=== PATIENT | male | born 1975 | race Hispanic/Latino ===

== ENCOUNTER 2018-06-11 13:49 | Observation (INO) | payer OTHER ==
[~2018-06-11] VITALS: Ht 175.3 cm; Wt 111.8 kg
[2018-06-11] MEDS ORDERED: SODIUM CHLORIDE 0.9% 1000ML 1,000 ML IV STA (13:57)
[2018-06-11] MEDS ORDERED: ONDANSETRON HCL INJ 2 MG/ML VIAL IV STA (13:57)
[2018-06-11] MEDS ORDERED: LABETALOL HCL 5 MG/ML 20ML VIAL IV STA (13:57)
[2018-06-11] MEDS ORDERED: ASPIRIN 81 MG CHEW TAB PO ONE ×2 (14:00→16:15)
[2018-06-11 14:19] LABS: BASOPHILS # (AUTO) 0.1 (0.0-0.1); BASOPHILS % 0.9 % (0.0-1.0); EOSINOPHILS # (AUTO) 0.3 (0.0-0.4); EOSINOPHILS % 5.3 % (0.0-6.0); HEMATOCRIT 37.7 % (38.2-49.6); HEMOGLOBIN 13.3 g/dL (14.0-18.0); LYMPHOCYTES # (AUTO) 1.7 (1.0-3.2); LYMPHOCYTES % 31.4 % (18.0-39.1); MEAN CORPUSCULAR HEMOGLOBIN 32.2 pg (28-32); MEAN CORPUSCULAR HGB CONC 35.3 g/dL (31-35); MEAN CORPUSCULAR VOLUME 91.3 fL (81-99); MONOCYTES # (AUTO) 0.5 (0.2-0.8); MONOCYTES % 8.5 % (4.4-11.3); NEUTROPHILS % 53.5 % (38.7-80.0); PLATELET COUNT 275 x10e3/uL (140-360); RED BLOOD COUNT 4.13 x10e6/uL (4.3-5.7); RED CELL DISTRIBUTION WIDTH 12.6 % (11.7-14.4)
[2018-06-11 14:33] LABS: INR 0.81; PARTIAL THROMBOPLASTIN TIME 27.9 seconds (23.8-35.5)
[2018-06-11 14:41] LABS: ALANINE AMINOTRANSFERASE 15 IU/L (0-55); ALBUMIN/GLOBULIN RATIO 1.1 (0.8-2.0); ALKALINE PHOSPHATASE 73 IU/L (40-150); ANION GAP 17.2 mmol/L (8-16); BLOOD UREA NITROGEN 12 mg/dL (7-26); BUN/CREATININE RATIO 10 (6-25); CALCIUM 9.1 mg/dL (8.4-10.2); CARBON DIOXIDE 21 mmol/L (22-29); CHLORIDE 101 mmol/L (98-107); CREATINE KINASE 44 IU/L (30-200); CREATININE, SERUM 1.16 mg/dL (0.72-1.25); EST GLOMERULAR FILTRATION RATE > 60 ML/MIN (60-); GLUCOSE 352 mg/dL (74-118); LIPASE 14 U/L (8-78); POTASSIUM 4.2 mmol/L (3.5-5.1); SODIUM 135 mmol/L (136-145)
[2018-06-11] MEDS ORDERED: ALPRAZOLAM2 MG PO (14:42)
[2018-06-11] MEDS ORDERED: CONZIP300 MG PO (14:42)
[2018-06-11] MEDS ORDERED: HUMALOG100 UNIT/1 SQ (14:42)
[2018-06-11] MEDS ORDERED: MELOXICAM15 MG PO (14:42)
[2018-06-11] MEDS ORDERED: LORAZEPAM1 MG PO (14:42)
[2018-06-11] MEDS ORDERED: TRESIBA SQ (14:42)
[2018-06-11] MEDS ORDERED: ATORVASTATIN CA20 MG PO (14:42)
[2018-06-11] MEDS ORDERED: NORTRIPTYLINE H25 MG PO (14:42)
[2018-06-11] MEDS ORDERED: GERI-HYDROLAC140 GM TOP (14:42)
[2018-06-11] MEDS ORDERED: FENOFIBRATE145 MG PO (14:42)
[2018-06-11] MEDS ORDERED: FAMOTIDINE40 MG PO (14:42)
[2018-06-11] MEDS ORDERED: TAMSULOSIN HCL0.4 MG PO (14:42)
[2018-06-11] MEDS ORDERED: GABAPENTIN300 MG PO (14:42)
[2018-06-11] MEDS ORDERED: TIZANIDINE HCL2 MG PO (14:42)
[2018-06-11] MEDS ORDERED: CLOPIDOGREL75 MG PO (14:42)
[2018-06-11] MEDS ORDERED: ONDANSETRON HCL4 MG PO (14:42)
[2018-06-11] MEDS ORDERED: GLIPIZIDE5 MG PO (14:42)
[2018-06-11] MEDS ORDERED: LEVETIRACETAM500 MG PO (14:42)
[2018-06-11] MEDS ORDERED: MORPHINE SULFATE INJ 4 MG/ML INJ IV STA (14:43)
[2018-06-11 14:54] LABS: CLARITY,URINE SL CLOUDY (CLEAR); COLOR,URINE YELLOW (YELLOW); KETONES,URINE NEGATIVE (NEGATIVE); LEUKOCYTE ESTERASE ,URINE NEGATIVE (NEGATIVE); NITRITE,URINE NEGATIVE (NEGATIVE); PROTEIN,URINE DIPSTICK NEGATIVE (NEGATIVE)
[2018-06-11 14:55] LABS: AMPHETAMINES SCREEN,URINE NEGATIVE (NEGATIVE); BENZODIAZEPINES SCREEN,URINE NEGATIVE (NEGATIVE); BILIRUBIN,URINE NEGATIVE (NEGATIVE); PHENCYCLIDINE SCREEN,URINE NEGATIVE (NEGATIVE); URINE UROBILINOGEN 0.2 mg/dL (0.2 - 1)
[2018-06-11 15:02] LABS: THYROID STIMULATING HORMONE 1.121 uIU/mL (0.350-4.940)
[2018-06-11] MEDS ORDERED: INSULIN REGULAR, HUMAN 100 UNIT/1 ML 3ML VIAL IV ONE (15:30)
[2018-06-11] MEDS ORDERED: NITROGLYCERIN 0.4 MG SUBL SL PRN (16:15)
[2018-06-11] MEDS ORDERED: DEXTROSE 50% SYRINGE 50 ML IV PRN (16:15)
--- NOTE | 2018-06-11 16:17 | Diagnostic Imaging Report ---
Examination: Single AP view of the chest. COMPARISON: None. INDICATION: Chest pain and shortness of breath DISCUSSION: Lines/tubes: None. Lungs: The lungs are well inflated and clear. No pneumonia or pulmonary edema. Pleura: No pleural effusion or pneumothorax. Heart and mediastinum: The heart and the mediastinum are unremarkable. Bones and soft tissues: No acute bony abnormalities. IMPRESSION: 1. No acute cardiopulmonary abnormalities. Signed by: Dr. Tre Eddy M.D. on 06/11/2018 4:14 PM
[2018-06-11] MEDS: FAMOTIDINE 20 MG TAB PO SCH (17:47)
[2018-06-11] MEDS: INSULIN REGULAR, HUMAN 100 UNIT/1 ML 3ML VIAL SQ SCH ×2 (17:52→22:30)
[2018-06-11] MEDS: MORPHINE SULFATE 2 MG/ML SYR IV PRN ×2 (19:23→23:10)
[2018-06-11] MEDS: ONDANSETRON HCL INJ 2 MG/ML VIAL IV PRN ×2 (19:23→23:10)
[2018-06-11 22:03] VITALS: BP 147/81
[2018-06-11 22:47] LABS: CREATINE KINASE 34 IU/L (30-200)
[2018-06-12] VITALS (10 sets, daily range): BP systolic 120–162; BP diastolic 67–85
[2018-06-12] MEDS ORDERED: LINACLOTIDE PO (00:26)
[2018-06-12] MEDS ORDERED: ULTRAM 50MG50 MG PO (00:26)
[2018-06-12] MEDS: MORPHINE SULFATE 2 MG/ML SYR IV PRN ×5 (03:48→21:54)
[2018-06-12] MEDS: ONDANSETRON HCL INJ 2 MG/ML VIAL IV PRN ×5 (03:48→21:54)
[2018-06-12] MEDS: FAMOTIDINE 20 MG TAB PO SCH ×3 (03:48→16:15)
[2018-06-12] MEDS ORDERED: LORAZEPAM 1 MG TAB PO PRN (07:00)
[2018-06-12] MEDS ORDERED: TRAMADOL HCL 50 MG TAB PO PRN (07:00)
[2018-06-12 08:18] LABS: CHOL/HDL RATIO 3.4 (3.9-4.7); CHOLESTEROL 238 MD/DL (0-199); CREATINE KINASE 36 IU/L (30-200); HDL CHOLESTEROL 69 MG/DL (40-60); LDL CHOLESTEROL 145 MG/DL (60-130); TRIGLYCERIDES 122 MG/DL (0-149)
[2018-06-12] MEDS: INSULIN REGULAR, HUMAN 100 UNIT/1 ML 3ML VIAL SQ SCH ×4 (08:30→21:48)
[2018-06-12] MEDS: FENOFIBRATE 145 MG TAB PO SCH (08:39)
[2018-06-12] MEDS: GABAPENTIN 300 MG CAP PO SCH ×3 (08:39→21:48)
[2018-06-12] MEDS: CLOPIDOGREL BISULFATE 75 MG TAB PO SCH (08:39)
[2018-06-12] MEDS: LINACLOTIDE 145 MCG CAPSULE PO SCH (08:39)
[2018-06-12] MEDS: ASPIRIN 325 MG TAB EC PO SCH (08:39)
[2018-06-12] MEDS: TIZANIDINE HCL 4 MG TAB PO SCH ×3 (08:43→21:48)
[2018-06-12] MEDS ORDERED: MELOXICAM 7.5 MG TAB PO SCH (09:00)
--- NOTE | 2018-06-12 10:18 | History and Physical ---
PRIMARY CARE PHYSICIAN: Dr. Francisco. CHIEF COMPLAINT: Chest pain. HISTORY OF PRESENT ILLNESS: This is a 42-year-old man with a history of diabetes mellitus and stroke, now developing left-sided chest pain, described as sharp and pressure at the same time with no radiation. He did have associated shortness of breath, dizziness, and nausea, but no diaphoresis. His last stress test was about 3 years ago which he states was negative. Currently, he continues to have some mild chest discomfort. Patient's symptoms started while he was asleep and awoke him. PAST MEDICAL HISTORY: Diabetes mellitus type 2, hypertension, stroke, seizures, and history of cigarette use. PAST SURGICAL HISTORY: Cholecystectomy and right meniscus tear. ALLERGIES: PER THE ELECTRONIC MEDICAL RECORD. FAMILY HISTORY/SOCIAL HISTORY: Patient is . He has 4 children. No alcohol or illicit drugs. He quit cigarettes. MEDICATIONS: Per electronic medical record. REVIEW OF SYSTEMS: Denies any fever, chills, sweats, nausea, vomiting, diarrhea, headache, vision changes, or back pain. PHYSICAL EXAMINATION VITAL SIGNS: Have been reviewed. GENERAL: A tired-appearing man, resting in bed. HEENT: Anicteric. Pupils responsive to light. No oral lesions. CARDIOVASCULAR: Normal S1 and S2. LUNGS: He has moderate breath sounds. ABDOMEN: Soft and nondistended. He has epigastric tenderness. EXTREMITIES: No edema or calf tenderness. MUSCULOSKELETAL: No chest wall tenderness. NEUROLOGICAL: Alert and oriented x3. Moving all extremities. SKIN: Dry. PSYCHIATRIC: Normal affect. LABS: Reviewed. MEDICATIONS: Reviewed. ASSESSMENT: A 42-year-old man with; 1. Chest pain. 2. Obesity. 3. Normocytic anemia. 4. Hyperlipidemia. 5. Diabetes mellitus type 2. 6. History of cigarette use. 7. Benign prostatic hypertrophy. 8. Seizures. PLAN 1. Cardiac enzymes negative x2. He does have a history of smoking and he has uncontrolled diabetes mellitus type 2 and obesity. Patient has increased risk factors for coronary artery disease. We will consult cardiology and obtain 2D echocardiogram. His hemoglobin A1c is 9.4, poorly controlled. His LDL is 145, which is also uncontrolled. We will optimize treatment. We will restart his home medication for diabetes. We will continue his fenofibrate and atorvastatin. We will increase atorvastatin to 40 mg at nighttime. 1. Continue with aspirin use. We will prophylactically treat with Lovenox. We will continue with his home Plavix and other medication regimen for blood pressure control. 2. Use Lovenox and Pepcid for prophylaxis. 3. Disposition. We will consult cardiology and obtain 2D echocardiogram to further evaluate patient, who is at increased risk of premature coronary artery disease. Job#: [id number] VAS
[2018-06-12 13:18] LABS: BASOPHILS # (AUTO) 0.1 (0.0-0.1); EOSINOPHILS # (AUTO) 0.3 (0.0-0.4); EOSINOPHILS % 5.9 % (0.0-6.0); HEMATOCRIT 37.7 % (38.2-49.6); LYMPHOCYTES # (AUTO) 1.6 (1.0-3.2); LYMPHOCYTES % 32.3 % (18.0-39.1); MEAN CORPUSCULAR HGB CONC 34.5 g/dL (31-35); MEAN CORPUSCULAR VOLUME 92.9 fL (81-99); MONOCYTES # (AUTO) 0.5 (0.2-0.8); MONOCYTES % 9.3 % (4.4-11.3); NEUTROPHILS # (AUTO) 2.6 (2.1-6.9); NEUTROPHILS % 51.3 % (38.7-80.0); PLATELET COUNT 248 x10e3/uL (140-360); RED BLOOD COUNT 4.06 x10e6/uL (4.3-5.7); RED CELL DISTRIBUTION WIDTH 12.4 % (11.7-14.4)
[2018-06-12 13:30] LABS: CREATINE KINASE 41 IU/L (30-200)
[2018-06-12 13:51] LABS: ANION GAP 14.5 mmol/L (8-16); BLOOD UREA NITROGEN 13 mg/dL (7-26); BUN/CREATININE RATIO 13 (6-25); CALCIUM 9.8 mg/dL (8.4-10.2); CARBON DIOXIDE 24 mmol/L (22-29); CHLORIDE 103 mmol/L (98-107); CREATININE, SERUM 0.97 mg/dL (0.72-1.25); EST GLOMERULAR FILTRATION RATE > 60 ML/MIN (60-); GLUCOSE 208 mg/dL (74-118); MAGNESIUM 1.9 MG/DL (1.3-2.1); POTASSIUM 4.5 mmol/L (3.5-5.1); SODIUM 137 mmol/L (136-145)
[2018-06-12] MEDS: ENOXAPARIN SOD INJ 40 MG/0.4 ML SYR SC SCH (17:05)
[2018-06-12] MEDS ORDERED: ATORVASTATIN 20 MG TAB PO SCH (21:00)
[2018-06-12] MEDS: ATORVASTATIN 40 MG TAB PO SCH (21:48)
[2018-06-12] MEDS: MELOXICAM 7.5 MG TAB PO SCH (21:48)
[2018-06-12] MEDS: TAMSULOSIN HCL 0.4 MG CAP PO SCH (21:48)
[2018-06-12] MEDS: NORTRIPTYLINE HCL 25 MG CAP PO SCH (21:48)
[2018-06-13] VITALS (8 sets, daily range): BP systolic 110–138; BP diastolic 64–82
[2018-06-13] MEDS: MORPHINE SULFATE 2 MG/ML SYR IV PRN ×6 (01:26→20:06)
[2018-06-13] MEDS: ONDANSETRON HCL INJ 2 MG/ML VIAL IV PRN ×4 (01:26→20:06)
[2018-06-13] MEDS: INSULIN REGULAR, HUMAN 100 UNIT/1 ML 3ML VIAL SQ SCH ×4 (08:30→22:00)
[2018-06-13] MEDS: FENOFIBRATE 145 MG TAB PO SCH (08:45)
[2018-06-13] MEDS: FAMOTIDINE 20 MG TAB PO SCH (08:45)
[2018-06-13] MEDS: GABAPENTIN 300 MG CAP PO SCH ×3 (08:45→20:06)
[2018-06-13] MEDS: CLOPIDOGREL BISULFATE 75 MG TAB PO SCH (08:45)
[2018-06-13] MEDS: LINACLOTIDE 145 MCG CAPSULE PO SCH (08:45)
[2018-06-13] MEDS: ASPIRIN 325 MG TAB EC PO SCH (08:45)
[2018-06-13] MEDS: TIZANIDINE HCL 4 MG TAB PO SCH ×3 (09:00→20:06)
[2018-06-13] MEDS: MELOXICAM 7.5 MG TAB PO SCH ×2 (09:00→20:06)
--- NOTE | 2018-06-13 12:52 | Progress Note ---
DATE: June 13, 2018 TIME: 01:45 a.m. OVERNIGHT: No acute events. REVIEW OF SYSTEMS: Patient denies shortness of breath, nausea, vomiting, fever, chills, sweats, diarrhea, constipation, headache, visual changes, or back pain. Patient denies shortness of breath; however, reports intermittent midsternal chest pain with occasional left side involvement as well. Described as sharp with pressure causing the associated shortness of breath when it occurs. No other complaints on this date. PHYSICAL EXAMINATION VITAL SIGNS: T 96.5, P 97, respirations 16, BP 110/75, and SpO2 99% on room air. GENERAL APPEARANCE: This is a tired-appearing man, resting supine in bed. HEENT: Normocephalic, PERRLA, oral mucosa moist and intact, some gingivitis present, trachea midline. CV: S1, S2 auscultated without a click, murmur, or rub present. LUNGS: Bilateral breath sounds are clear in all cantu with moderate excursion. ABDOMEN: Soft and nondistended. Some tenderness and guarding during examination in the upper quadrant area. EXTREMITIES: Without edema or calf tenderness. MUSCULOSKELETAL: No palpable tenderness to joint, back, or chest wall. NEUROLOGIC: A and O x3. Moves all extremities. No gross defects noted on examination. SKIN: Dry. PSYCHIATRIC: Normal affect. LABS: Reviewed. MEDICATIONS: Reviewed. ASSESSMENT AND PLAN: This is a 42-year-old man with;. 1. Chest pain. Cardiac enzymes are negative; however, the patient has significant cerebrovascular accident risk factors, which include a hemoglobin A1c of 9.4 and LDL of 45 upon admission. Patient is being treated with fenofibrate, Plavix, aspirin, Lipitor, and sliding scale insulin in addition to Lovenox. 2. Obesity. Outpatient calorie count. 3. Normocytic anemia, likely nutritional related. 4. Hyperlipidemia. Fenofibrate and statin. 5. Diabetes mellitus type 2. Poor control as outpatient. Resume medications with titration. 6. History of cigarette use. 7. Benign prostatic hypertrophy, Flomax. 8. Seizures. Continue gabapentin. 9. Prophylaxis, Lovenox and Pepcid. DISPOSITION: A 2D echo obtained this a.m., interpretation pending. Due to risk factors, patient is scheduled for stress test in the a.m. per RN. We will obtain hemogram in a.m. Dictated by: Alisha Layne NP Job#: [id number] MARIBEL
[2018-06-13] MEDS: ENOXAPARIN SOD INJ 40 MG/0.4 ML SYR SC SCH (17:13)
--- NOTE | 2018-06-13 17:28 | Consultation ---
CARDIOLOGY CONSULT NOTE DATE OF CONSULTATION: June 12, 2018 REQUESTING PHYSICIAN: Dr. Ian Cowart. REASON FOR CONSULTATION: Chest pain. HISTORY OF PRESENT ILLNESS: This is a 42-year-old male with history of diabetes mellitus, hypertension, hyperlipidemia, history of CVA, COPD, seizure disorder, and rheumatoid arthritis, who presents with complaints of chest pain. He described the pain as a sharp pressure sensation associated with shortness of breath, nausea, and tingling in the fingers of his left hand. It began yesterday around noon and occurred off and on, lasting 5 to 10 minutes at a time. He reports the pain was 8/10 in severity. He denies edema, orthopnea, or PND. REVIEW OF SYSTEMS: Negative except as per HPI. PAST MEDICAL HISTORY 1. Diabetes mellitus. 2. Hypertension. 3. Hyperlipidemia. 4. History of CVA. 5. Seizure disorder. 6. Rheumatoid arthritis. PAST SURGICAL HISTORY 1. Cholecystectomy. 2. Right meniscus surgery. ALLERGIES: PLEASE SEE EMR. MEDICATIONS: Please see medication list. SOCIAL HISTORY: Denies tobacco, alcohol, or illicit drugs. FAMILY HISTORY: Pertinent for sister with coronary artery disease and brother with congestive heart failure. PHYSICAL EXAM VITAL SIGNS: Temperature 97.3 degrees, pulse 101, respiratory rate 20, blood pressure 143/85, and oxygen saturation 98% on room air. GENERAL: Well-developed, well-nourished man, in no acute distress. Awake and alert. HEENT: Normocephalic, atraumatic. Pupils are equal. No scleral icterus. NECK: Supple. No thyromegaly or cervical lymphadenopathy. No carotid bruits. LUNGS: Clear to auscultation bilaterally. No wheezes or crackles. CARDIOVASCULAR: Normal rate, regular rhythm. No murmur. Normal S1 and S2. ABDOMEN: Soft, nontender. EXTREMITIES: No edema. NEURO: Nonfocal exam. CARDIAC MEDICATIONS 1. Fenofibrate 145 mg p.o. daily. 2. Plavix 75 mg p.o. daily. 3. Aspirin 325 mg p.o. q.a.m. 4. Atorvastatin 40 mg p.o. at bedtime. LABS: WBC 5.07, hemoglobin 13, hematocrit 37.7, and platelets 248. Sodium 137, potassium 4.5, chloride 103, CO2 of 24, BUN 13, creatinine 0.97, and INR 0.81. EKG, sinus tachycardia, otherwise normal ECG. Chest x-ray, no acute cardiopulmonary abnormalities. IMPRESSION 1. Chest pain. 2. Diabetes mellitus. 3. Hypertension. 4. Hyperlipidemia. 5. History of cerebrovascular accident. 6. Seizure disorder. 7. Rheumatoid arthritis. RECOMMENDATIONS: Given patient's multiple risk factors, ischemic evaluation is warranted with nuclear stress test for further evaluation. Patient ruled out for myocardial infarction with serial cardiac biomarkers. Echocardiogram has been done. We will review the images. Continue current cardiac medications otherwise. Thank you for this consult. We will continue to follow. Job#: [id number] LPA
[2018-06-13] MEDS: NORTRIPTYLINE HCL 25 MG CAP PO SCH (20:06)
[2018-06-13] MEDS: TAMSULOSIN HCL 0.4 MG CAP PO SCH (20:06)
[2018-06-13] MEDS: ATORVASTATIN 40 MG TAB PO SCH (20:06)
--- NOTE | 2018-06-13 23:09 | Progress Note ---
DATE: June 13, 2018 CARDIOLOGY PROGRESS NOTE SUBJECTIVE: Patient continues to have chest pain. He denies shortness of breath. OBJECTIVE: VITAL SIGNS: Temperature 97.3 degrees, pulse 99, respiratory rate 18, blood pressure 162/84, oxygen saturation 100% on room air. GENERAL: Awake, alert, in no acute distress. LUNGS: Clear to auscultation bilaterally. No wheezes or crackles. CARDIOVASCULAR: Normal rate, regular rhythm. No murmur. Normal S1 and S2. ABDOMEN: Soft, nontender. EXTREMITIES: No edema. CARDIAC MEDICATIONS: Atorvastatin 40 mg p.o. nightly, fenofibrate 145 mg p.o. daily, Plavix 75 mg p.o. daily, aspirin 325 mg p.o. daily. LABS: None today. TELEMETRY: Normal sinus rhythm. IMPRESSION: 1. Chest pain. 2. Diabetes mellitus. 3. Hypertension. 4. Hyperlipidemia. 5. History of cerebrovascular accident. 6. Seizure disorder. 7. Rheumatoid arthritis. RECOMMENDATIONS: Given patient's multiple risk factors, ischemic evaluation is warranted with nuclear stress test. Planned for tomorrow. He is ruled out for myocardial infarction with serial cardiac biomarkers. Echocardiogram demonstrated normal LV size with moderate concentric LVH with preserved LVEF between 50% and 55%. Given poor blood pressure control and diabetes, we will start patient on DENIA inhibitor, decrease aspirin to 81 mg daily. Continue current cardiac medications otherwise. Thank you for this consult. We will continue to follow. Job#: [id number] DR COLUNGA
[2018-06-14] VITALS (7 sets, daily range): BP systolic 111–135; BP diastolic 56–85
[2018-06-14] MEDS: MORPHINE SULFATE 2 MG/ML SYR IV PRN ×5 (00:25→19:51)
[2018-06-14] MEDS: ONDANSETRON HCL INJ 2 MG/ML VIAL IV PRN ×2 (05:40→19:51)
[2018-06-14] MEDS: INSULIN REGULAR, HUMAN 100 UNIT/1 ML 3ML VIAL SQ SCH ×4 (07:30→20:39)
[2018-06-14] MEDS ORDERED: LISINOPRIL2.5 MG PO (08:31)
[2018-06-14] MEDS: CLOPIDOGREL BISULFATE 75 MG TAB PO SCH (09:00)
[2018-06-14] MEDS: FAMOTIDINE 20 MG TAB PO SCH (09:00)
[2018-06-14] MEDS: ASPIRIN 325 MG TAB EC PO SCH (09:00)
[2018-06-14] MEDS: LISINOPRIL 2.5 MG TAB PO SCH (09:00)
[2018-06-14] MEDS: MELOXICAM 7.5 MG TAB PO SCH ×2 (09:00→20:46)
[2018-06-14] MEDS: TIZANIDINE HCL 4 MG TAB PO SCH ×3 (09:00→20:47)
[2018-06-14] MEDS: GABAPENTIN 300 MG CAP PO SCH ×3 (09:00→20:46)
[2018-06-14] MEDS: LINACLOTIDE 145 MCG CAPSULE PO SCH (09:00)
[2018-06-14] MEDS: FENOFIBRATE 145 MG TAB PO SCH (09:00)
[2018-06-14] MEDS ORDERED: REGADENOSON 0.4 MG/5 ML SYR IV ONE (11:38)
[2018-06-14] MEDS: ENOXAPARIN SOD INJ 40 MG/0.4 ML SYR SC SCH (16:35)
[2018-06-14] MEDS: TAMSULOSIN HCL 0.4 MG CAP PO SCH (18:44)
[2018-06-14] MEDS: NORTRIPTYLINE HCL 25 MG CAP PO SCH (20:46)
[2018-06-14] MEDS: ATORVASTATIN 40 MG TAB PO SCH (20:46)
[2018-06-14] MEDS: TOBRAMYCIN/DEXAMETHASONE(OPTH) 3.5 GM TUBE OP SCH (21:49)
--- NOTE | 2018-06-14 22:24 | Progress Note ---
DATE: June 14, 2018 CARDIOLOGY PROGRESS NOTE SUBJECTIVE: Patient continues to complain of chest pain. He denies any shortness of breath. The patient reports the vision in his right eye remains blurry after it was exposed to the gel use to prep for a stress test. Stress test was canceled due to this. OBJECTIVE VITAL SIGNS: Temperature 97.5 degrees, pulse 87, respiratory rate 20, blood pressure 127/85, oxygen saturation 97% on room air. GENERAL: Awake, alert, in no acute distress. LUNGS: Clear to auscultation bilaterally. No wheezes or crackles. CARDIOVASCULAR: Normal rate, regular rhythm. No murmur. Normal S1, S2. ABDOMEN: Soft, nontender. EXTREMITIES: No edema. CARDIAC MEDICATIONS 1. Atorvastatin 40 mg p.o. nightly. 2. Lisinopril 5 mg p.o. daily. 3. Aspirin 81 mg p.o. q.a.m. 4. Plavix 75 mg p.o. daily. LABS: None today. TELEMETRY: Normal sinus rhythm. IMPRESSIONS 1. Chest pain. 2. Diabetes mellitus. 3. Hypertension. 4. Hyperlipidemia. 5. History of cerebrovascular accident. 6. Seizure disorder. 7. Rheumatoid arthritis. 8. Right eye vision changes. RECOMMENDATIONS: Patient ruled out for myocardial infarction with serial cardiac biomarkers. Echocardiogram demonstrated normal LV size with moderate concentric LVH with preserved LVEF between 50% and 55%. Patient's blood pressure is better controlled with initiation of DENIA inhibitor. Will monitor for now, continue current cardiac medications. Patient was evaluated by ophthalmology regarding his right eye blurriness. If his vision improves tomorrow, we may be able to proceed with nuclear stress test. Thank you for this consult. We will continue to follow. Job#: [id number]
[2018-06-15 00:01] VITALS: BP 128/87
[2018-06-15] MEDS: MORPHINE SULFATE 2 MG/ML SYR IV PRN ×5 (03:15→16:57)
[2018-06-15] MEDS: ONDANSETRON HCL INJ 2 MG/ML VIAL IV PRN (03:15)
[2018-06-15] MEDS: TOBRAMYCIN/DEXAMETHASONE(OPTH) 3.5 GM TUBE OP SCH ×2 (05:05→13:40)
[2018-06-15 05:08] VITALS: BP 101/62
[2018-06-15] MEDS: INSULIN REGULAR, HUMAN 100 UNIT/1 ML 3ML VIAL SQ SCH ×3 (07:30→16:28)
[2018-06-15 08:00] VITALS: BP 128/81
[2018-06-15] MEDS: FAMOTIDINE 20 MG TAB PO SCH ×2 (08:20→09:00)
[2018-06-15] MEDS: LINACLOTIDE 145 MCG CAPSULE PO SCH ×2 (08:20→09:00)
[2018-06-15] MEDS: GABAPENTIN 300 MG CAP PO SCH ×3 (08:20→15:23)
[2018-06-15] MEDS: FENOFIBRATE 145 MG TAB PO SCH ×2 (08:20→09:00)
[2018-06-15] MEDS: LISINOPRIL 2.5 MG TAB PO SCH ×2 (08:20→09:00)
[2018-06-15] MEDS: ASPIRIN 325 MG TAB EC PO SCH ×2 (08:20→09:00)
[2018-06-15] MEDS: TIZANIDINE HCL 4 MG TAB PO SCH ×3 (08:20→15:24)
[2018-06-15] MEDS: CLOPIDOGREL BISULFATE 75 MG TAB PO SCH ×2 (08:20→09:00)
[2018-06-15] MEDS: MELOXICAM 7.5 MG TAB PO SCH ×2 (08:20→09:00)
[2018-06-15 08:29] VITALS: BP 128/81
[2018-06-15 12:20] VITALS: BP 134/83
--- NOTE | 2018-06-15 12:49 | Progress Note ---
DATE: June 15, 2018 CARDIOLOGY PROGRESS NOTE SUBJECTIVE: Mr. Trevino continues to have some burning in his eyes. He underwent a Lexiscan stress test today without complications. OBJECTIVE VITAL SIGNS: Afebrile. Heart rate 78. Blood pressure is 128/75. CARDIOVASCULAR: Regular rhythm. No murmurs or gallops. LUNGS: Clear to auscultation bilaterally. CARDIAC MEDICATIONS: Reviewed. LABS: No labs were performed today. Blood sugar is 103. ASSESSMENT: Unstable angina, multiple cardiovascular risk factors. RECOMMENDATIONS: Lexiscan nuclear stress test was performed. We will review the images and make recommendations. If normal, the patient may be discharged home. Job#: [id number]
--- OUTSIDE RECORDS SUMMARY | 2018-06-15 13:31 | XMS REPORT ---
Author Author [facility] Address Unknown Phone Unavailable Care Team Providers [employer] Designer Name Role Phone Paul HOOD Unavailable Unavailable Renetta PICHARDO Unavailable Unavailable Payers Payer Name Policy Type Policy Number Effective Date Expiration Date Problems This patient has no known problems. Allergies, Adverse Reactions, Alerts Allergy Name Allergy Type Status Severity Reaction(s) Onset Date Inactive Date Treating Clinician Comments carvedilol DA Active SV 2018-04-23 00:00:00 Medications This patient has no known medications. Results Test Description Test Time Test Comments Text Results Atomic Results Result Comments CHEST SINGLE (PORTABLE) 2018-06-11 16:13:00 [place] [id number] Patient Name: VAUGHN HUDDLESTON MR #: [id number] : 1975 Age/Sex: 42/M Req #: [id number] Adm Physician: Ordered by: RC LEAHY [employer]ED [employer] SERVICE MANAGER Report #: [id number] Location: ER Room/Bed: Procedure: [id number] DX/CHEST SINGLE (PORTABLE) Exam Date: 06/11/18 Exam Time: 1514 REPORT STATUS: Signed Examination: Single AP view of the chest. COMPARISON: None. INDICATION: Chest pain and shortness of breath DISCUSSION: Lines/tubes: None. Lungs: The lungs are well inflated and clear. No pneumonia or pulmonary edema. Pleura: No pleural effusion or pneumothorax. Heart and mediastinum: The heart and the mediastinum are unremarkable. Bones and soft tissues: No acute bony abnormalities. IMPRESSION: 1. No acute cardiopulmonary abnormalities. Signed by: Dr. Isis Torres M.D. on 06/11/2018 4:14 PM Dictated By: ISIS TORRES MD 13 Transcribed By: KARLEY on 06/11/181613 COPY TO: RC LE[employer] SERVICE MANAGER CHEST 2 VIEWS [place] [id number] Patient Name: VAUGHN HUDDLESTON MR #: [id number] : 1975 Age/Sex: 41/M Req #: [id number] Adm Physician: Ordered by: RUSSELL PICHARDO MD Report #: [id number] Location: ER Room/Bed: Procedure: [id number] DX/CHEST 2 VIEWS Exam Date: 07/07/17 Exam Time: 2123 REPORT STATUS: Signed EXAMINATION: CHEST 2 VIEWS INDICATION: Chest pain, shortness of breath COMPARISON: None FINDINGS: TUBES and LINES: None. LUNGS: Lungs are well inflated. Lungs are clear. There is no evidence of pneumonia or pulmonary edema. PLEURA: No pleural effusion or pneumothorax. HEART AND MEDIASTINUM: The cardiomediastinal silhouette is unremarkable. BONES AND SOFT TISSUES: No acute osseous lesion. Soft tissues are unremarkable. UPPER ABDOMEN: No free air under the diaphragm. There are cholecystectomy clips. IMPRESSION: No acute thoracic abnormality. Signed by: Dr. Duy Rust M.D. on 07/07/2017 9:32 PM Dictated By: DUY AVILA MD 31 Transcribed By: KARLEY on 07/07/172131 COPY TO: RUSSELL PICHARDO MD
[2018-06-15] MEDS ORDERED: ARTIFICIAL TEARS (OPTH) 15 ML BTL OP SCH (15:00)
[2018-06-15] MEDS ORDERED: MOXIFLOXACIN HCL(OPTH) 3 ML BTL OP SCH (15:00)
--- NOTE | 2018-06-15 15:21 | Cardiology Report ---
DATE OF STUDY: June 15, 2018 LEXISCAN NUCLEAR STRESS TEST INDICATIONS: Chest pain. Coronary artery disease. This patient was stressed using a 1-minute intravenous infusion of Lexiscan. Rest and stress Myoview imaging was obtained. Both nuclear imaging in rest and stress is normal. Normal contractility of the left ventricle. CONCLUSIONS: 1. Normal Lexiscan nuclear stress test without evidence of ischemia or infarction. 2. Left ventricular ejection fraction is 53%. Job#: [id number] EV
[2018-06-15 16:00] VITALS: BP 121/78
[2018-06-15] MEDS: ENOXAPARIN SOD INJ 40 MG/0.4 ML SYR SC SCH (16:25)
[2018-06-15] MEDS ORDERED: TOBRADEX EYE O3.5 GM OP (17:37)
[2018-06-15] MEDS ORDERED: VIGAMOX3 ML (17:38)
[2018-06-15] MEDS ORDERED: ARTIFICIAL TEAR15 ML OP (17:39)
== END 2018-06-15 18:47 | disposition home or self-care (01) ==
LOC: ER 13:49 → INTOOBSV 17:01 → ERHOLD 17:01 → MED/SURG 22:04 → IMCU 06-14 10:49
PROVIDERS: ADMIT Internal Medicine; ATTEND Internal Medicine
DX: R07.89 Other chest pain (principal); E11.65 Type 2 diabetes mellitus with hyperglycemia; E11.40 Type 2 diabetes mellitus with diabetic neuropathy, unspecified; Z79.4 Long term (current) use of insulin; E66.9 Obesity, unspecified; Z68.36 Body mass index [BMI] 36.0-36.9, adult; J44.9 Chronic obstructive pulmonary disease, unspecified; E78.5 Hyperlipidemia, unspecified; D64.9 Anemia, unspecified; G40.909 Epilepsy, unspecified, not intractable, without status epilepticus; Z86.73 Personal history of transient ischemic attack (TIA), and cerebral infarction without residual deficits; M06.9 Rheumatoid arthritis, unspecified; F41.8 Other specified anxiety disorders; H53.9 Unspecified visual disturbance; Z87.891 Personal history of nicotine dependence; Z79.02 Long term (current) use of antithrombotics/antiplatelets; Z79.82 Long term (current) use of aspirin
CPT/HCPCS: 36415 ×5; 71045; 78452; 80048; 80053; 80061; 80307; 81001; 82550 ×2; 82553 ×2; 82948 ×5; 83036; 83690; 83735; 83880; 84443; 84484 ×2; 85025 ×2; 85610; 85730; 87086; 93005; 93017; 93306; 99284; A9502; G0378 ×5; J1650 ×4; J2270 ×6; J2405 ×5; J7030

== ENCOUNTER 2024-11-09 17:13 | Inpatient (IN) | payer OTHER ==
[~2024-11-09] VITALS: Ht 175.3 cm; Wt 90.7 kg
[~2024-11-09 17:13] MED LIST: ALPRAZOLAM2 MG PO; ARTIFICIAL TEAR15 ML OP; ATORVASTATIN CA20 MG PO; CLOPIDOGREL75 MG PO; CONZIP300 MG PO; FAMOTIDINE40 MG PO; FENOFIBRATE145 MG PO; GABAPENTIN300 MG PO; GERI-HYDROLAC140 GM TOP; GLIPIZIDE5 MG PO; HUMALOG100 UNIT/1 SQ; LEVETIRACETAM500 MG PO; LINACLOTIDE PO; LISINOPRIL2.5 MG PO; LORAZEPAM1 MG PO; MELOXICAM15 MG PO; NORTRIPTYLINE H25 MG PO; ONDANSETRON HCL4 MG PO; TAMSULOSIN HCL0.4 MG PO; TIZANIDINE HCL2 MG PO; TOBRADEX EYE O3.5 GM OP; TRESIBA SQ; ULTRAM 50MG50 MG PO; VIGAMOX3 ML
[2024-11-09 17:27] VITALS: TEMP 98.6
[2024-11-09] MEDS: ONDANSETRON HCL INJ 2MG/ML 2ML 2 MG/ML VIAL IV STA ×2 (17:55→21:43)
[2024-11-09] MEDS: SODIUM CHLORIDE 0.9% 1000ML 1,000 ML IV STA (17:55)
[2024-11-09 18:22] LABS: BASOPHILS % 0.3 % (0.0-1.0); HEMATOCRIT 45.4 % (38.2-49.6); HEMOGLOBIN 15.8 g/dL (14.0-18.0); LYMPHOCYTES % 8.8 % (18.0-39.1); MEAN CORPUSCULAR HEMOGLOBIN 30.7 pg (28-32); MEAN CORPUSCULAR HGB CONC 34.8 g/dL (31-35); MEAN CORPUSCULAR VOLUME 88.2 fL (81-99); MONOCYTES # (AUTO) 0.4 (0.2-0.8); MONOCYTES % 3.9 % (4.4-11.3); NEUTROPHILS # (AUTO) 9.3 (2.1-6.9); NEUTROPHILS % 86.7 % (38.7-80.0); PLATELET COUNT 336 x10e3/uL (140-360); RED BLOOD COUNT 5.15 x10e6/uL (4.3-5.7); RED CELL DISTRIBUTION WIDTH 12.6 % (11.7-14.4); WHITE BLOOD COUNT 10.74 x10e3/uL (4.8-10.8)
[2024-11-09 18:34] LABS: INFLUENZA A AG NEGATIVE (NEGATIVE)
[2024-11-09] MEDS: SODIUM CHLORIDE 0.9% 1000ML 2,000 ML IV STA (18:34)
[2024-11-09 18:35] LABS: CORONAVIRUS COVID-19 AG NEGATIVE (NEGATIVE); INFLUENZA B AG NEGATIVE (NEGATIVE)
[2024-11-09 18:59] LABS: CREATINE KINASE 24 IU/L (30-200); LIPASE 35 U/L (8-78)
[2024-11-09 19:01] LABS: ALBUMIN 3.9 g/dL (3.5-5.0); ALBUMIN/GLOBULIN RATIO 0.8 (0.8-2.0); ANION GAP 25.4 mmol/L (8-16); BILIRUBIN,TOTAL 0.7 mg/dL (0.2-1.2); CALCIUM 10.8 mg/dL (8.4-10.2); CREATININE, SERUM 1.79 mg/dL (0.72-1.25); POTASSIUM 4.4 mmol/L (3.5-5.1); TOTAL PROTEIN 8.6 g/dL (6.5-8.1)
[2024-11-09 19:10] LABS: TROPONIN I < 0.001 ng/mL (0-0.300)
[2024-11-09] MEDS ORDERED: IOPAMIDOL 370 MG/ML 100 ML INFUS..BTL INJ ONE (19:24)
[2024-11-09] MEDS: INSULIN REGULAR, HUMAN 100 UNIT/1 ML IV STA (20:48)
[2024-11-09] MEDS: Morphine 4mg INJECTION 4 MG/ML INJ IV STA (21:44)
[2024-11-09 22:00] VITALS: PULSE 119; RESP 18
[2024-11-09 22:41] LABS: ALBUMIN 2.6 g/dL (3.5-5.0); ALBUMIN/GLOBULIN RATIO 0.9 (0.8-2.0); ANION GAP 16.5 mmol/L (8-16); BILIRUBIN,TOTAL 0.3 mg/dL (0.2-1.2); CREATININE, SERUM 0.97 mg/dL (0.72-1.25)
[2024-11-09 22:44] LABS: TROPONIN I 0.003 ng/mL (0-0.300)
[2024-11-09 22:45] LABS: CALCIUM 7.1 mg/dL (8.4-10.2); POTASSIUM 3.5 mmol/L (3.5-5.1); TOTAL PROTEIN 5.5 g/dL (6.5-8.1)
[2024-11-09 23:29] VITALS: PULSE 117; RESP 18; O2SAT 100
[2024-11-09] MEDS: LORAZEPAM INJ 2 MG/ML VIAL IV ONE (23:32)
[2024-11-09] MEDS: SODIUM CHLORIDE 0.9% 1000ML 1,000 ML IV SCH (23:32)
[2024-11-10] VITALS (28 sets, daily range): BP systolic 64–180; BP diastolic 39–108; PULSE 95–119; RESP 12–21; TEMP 98.1–99.2; O2SAT 95–100
[2024-11-10] MEDS: LABETALOL HCL 5 MG/ML 20ML VIAL IV PRN (03:36)
[2024-11-10] MEDS: ONDANSETRON HCL INJ 2MG/ML 2ML 2 MG/ML VIAL IV PRN (05:59)
[2024-11-10] MEDS: Morphine 4mg INJECTION 4 MG/ML INJ IV PRN (06:01)
[2024-11-10 07:11] LABS: BASOPHILS % 0.4 % (0.0-1.0); EOSINOPHILS % 0.2 % (0.0-6.0); HEMATOCRIT 38.3 % (38.2-49.6); HEMOGLOBIN 12.9 g/dL (14.0-18.0); LYMPHOCYTES # (AUTO) 1.3 (1.0-3.2); LYMPHOCYTES % 13.6 % (18.0-39.1); MEAN CORPUSCULAR HEMOGLOBIN 31.3 pg (28-32); MEAN CORPUSCULAR HGB CONC 33.7 g/dL (31-35); MONOCYTES # (AUTO) 0.7 (0.2-0.8); MONOCYTES % 6.8 % (4.4-11.3); NEUTROPHILS # (AUTO) 7.7 (2.1-6.9); NEUTROPHILS % 78.7 % (38.7-80.0); PLATELET COUNT 265 x10e3/uL (140-360); RED BLOOD COUNT 4.12 x10e6/uL (4.3-5.7); RED CELL DISTRIBUTION WIDTH 13.2 % (11.7-14.4); WHITE BLOOD COUNT 9.77 x10e3/uL (4.8-10.8)
[2024-11-10 07:43] LABS: ALBUMIN/GLOBULIN RATIO 0.9 (0.8-2.0); ANION GAP 16.3 mmol/L (8-16); BILIRUBIN,TOTAL 0.5 mg/dL (0.2-1.2); CALCIUM 8.5 mg/dL (8.4-10.2); CREATININE, SERUM 1.22 mg/dL (0.72-1.25); POTASSIUM 4.3 mmol/L (3.5-5.1); TOTAL PROTEIN 6.4 g/dL (6.5-8.1)
[2024-11-10 07:49] LABS: TROPONIN I 0.008 ng/mL (0-0.300)
[2024-11-10] MEDS ORDERED: DEXTROSE 50% SYRINGE 50 ML IV PRN ×2 (09:00)
[2024-11-10] MEDS: INSULIN REGULAR, HUMAN 100 UNIT/1 ML SQ SCH (09:10)
[2024-11-10] MEDS: INSULIN GLARGINE 100 UNITS/ML VIAL SQ SCH (09:10)
[2024-11-10 16:11] LABS: BACTERIA,URINE FEW /HPF; BILIRUBIN,URINE NEGATIVE (NEGATIVE); CLARITY,URINE CLEAR (CLEAR); COLOR,URINE YELLOW (YELLOW); EPITHELIAL CELLS,URINE FEW /LPF; GLUCOSE, URINE 500 (NEGATIVE); KETONES,URINE 1+ (NEGATIVE); LEUKOCYTE ESTERASE ,URINE NEGATIVE (NEGATIVE); NITRITE,URINE NEGATIVE (NEGATIVE); PH,URINE 5.5 (5 - 7); PROTEIN,URINE DIPSTICK 1+ (NEGATIVE); RBC,URINE 0-5 /HPF (0-5); URINE UROBILINOGEN 0.2 mg/dL (0.2 - 1); WBC,URINE (MAN) 0-5 /HPF (0-5)
[2024-11-10 16:12] LABS: YEAST,URINE FEW
[2024-11-10 16:20] LABS: TROPONIN I 0.006 ng/mL (0-0.300)
[2024-11-10] MEDS ORDERED: LORAZEPAM 1 MG TAB PO PRN (22:00)
[2024-11-10] MEDS ORDERED: OMEPRAZOLE 20 MG CAP PO SCH (22:15)
[2024-11-10] MEDS ORDERED: METOCLOPRAMIDE HCL 10 MG TAB PO SCH (22:15)
[2024-11-10] MEDS: METOCLOPRAMIDE HCL 10 MG/2ML VIAL IV SCH (23:36)
[2024-11-10] MEDS: LEVETIRACETAM 500 MG TAB PO SCH (23:36)
[2024-11-10] MEDS: TAMSULOSIN HCL 0.4 MG CAP PO SCH (23:36)
[2024-11-10] MEDS: NORTRIPTYLINE HCL 25 MG CAP PO SCH (23:37)
[2024-11-11] VITALS (13 sets, daily range): BP systolic 128–168; BP diastolic 65–114; PULSE 91–102; RESP 11–20; TEMP 97.4–98.3; O2SAT 98–100
[2024-11-11 06:53] LABS: BASOPHILS % 0.7 % (0.0-1.0); EOSINOPHILS # (AUTO) 0.2 (0.0-0.4); EOSINOPHILS % 2.6 % (0.0-6.0); HEMATOCRIT 31.3 % (38.2-49.6); LYMPHOCYTES # (AUTO) 1.9 (1.0-3.2); LYMPHOCYTES % 31.5 % (18.0-39.1); MEAN CORPUSCULAR HEMOGLOBIN 31.6 pg (28-32); MEAN CORPUSCULAR HGB CONC 35.1 g/dL (31-35); MEAN CORPUSCULAR VOLUME 89.9 fL (81-99); MONOCYTES # (AUTO) 0.5 (0.2-0.8); MONOCYTES % 7.8 % (4.4-11.3); NEUTROPHILS # (AUTO) 3.5 (2.1-6.9); NEUTROPHILS % 57.2 % (38.7-80.0); PLATELET COUNT 218 x10e3/uL (140-360); RED BLOOD COUNT 3.48 x10e6/uL (4.3-5.7); RED CELL DISTRIBUTION WIDTH 12.9 % (11.7-14.4); WHITE BLOOD COUNT 6.06 x10e3/uL (4.8-10.8)
[2024-11-11 07:40] LABS: ANION GAP 10.1 mmol/L (8-16); CALCIUM 7.8 mg/dL (8.4-10.2); CREATININE, SERUM 0.79 mg/dL (0.72-1.25)
[2024-11-11 07:41] LABS: POTASSIUM 3.1 mmol/L (3.5-5.1)
[2024-11-11] MEDS: LISINOPRIL 2.5 MG TAB PO SCH (07:59)
[2024-11-11] MEDS: GABAPENTIN 300 MG CAP PO SCH (07:59)
[2024-11-11] MEDS: POTASSIUM CHLORIDE 10MEQ EA PO ONE (12:03)
[2024-11-11] MEDS: POTASSIUM PHOSPHATE 15 MM in SODIUM CHLORIDE 0.9% 250ML 250 ML IV SCH (12:31)
[2024-11-12 03:40] VITALS: BP 140/91; PULSE 91; RESP 18; TEMP 97.8; O2SAT 99
[2024-11-12 08:00] VITALS: BP 147/94; PULSE 94; RESP 20; TEMP 98.1; O2SAT 99
[2024-11-12 09:00] VITALS: BP 147/94; PULSE 94; RESP 20; TEMP 98.1; O2SAT 99
[2024-11-12 09:10] LABS: ANION GAP 11.3 mmol/L (8-16); CALCIUM 7.9 mg/dL (8.4-10.2); PHOSPHORUS 2.6 MG/DL (2.3-4.7); POTASSIUM 4.3 mmol/L (3.5-5.1)
[2024-11-23 05:50] LABS: ABG PH 7.3 (7.35-7.45)
== END 2024-11-12 11:50 | disposition home or self-care (01) | DRG 371 ==
LOC: ER 18:06 → ERHOLD 21:35 → ICU 23:47 → MED/SURG2 11-11 14:10
PROVIDERS: ADMIT Internal Medicine; ATTEND Internal Medicine
PROC: 4A133R1 Monitoring of Arterial Saturation, Peripheral, Percutaneous Approach (ICD-10-PCS; principal; 2024-11-09)
DX: A04.9 Bacterial intestinal infection, unspecified (principal); E11.10 Type 2 diabetes mellitus with ketoacidosis without coma; I69.351 Hemiplegia and hemiparesis following cerebral infarction affecting right dominant side; K86.1 Other chronic pancreatitis; N17.9 Acute kidney failure, unspecified; R53.81 Other malaise; I10 Essential (primary) hypertension; J44.9 Chronic obstructive pulmonary disease, unspecified; I25.10 Atherosclerotic heart disease of native coronary artery without angina pectoris; F41.9 Anxiety disorder, unspecified; F32.A Depression, unspecified; E78.5 Hyperlipidemia, unspecified; G40.909 Epilepsy, unspecified, not intractable, without status epilepticus; K21.00 Gastro-esophageal reflux disease with esophagitis, without bleeding; K29.70 Gastritis, unspecified, without bleeding; R00.0 Tachycardia, unspecified; Z11.52 Encounter for screening for COVID-19; Z79.4 Long term (current) use of insulin; Z79.02 Long term (current) use of antithrombotics/antiplatelets; Z79.84 Long term (current) use of oral hypoglycemic drugs; Z90.49 Acquired absence of other specified parts of digestive tract; Z88.8 Allergy status to other drugs, medicaments and biological substances; F17.200 Nicotine dependence, unspecified, uncomplicated
CPT/HCPCS: 36415; 74177; 80048; 80053; 81001; 82550; 82805; 82948; 83690; 83735; 84100; 84484; 85025; 93005; 93306; 94799; 96372; 99252; 99284; J1815; J2060; J2270; J2405; J2470; J2543; J2765; J7030; J7050; Q9967

== ENCOUNTER 2024-11-25 18:42 | Inpatient (IN) | payer OTHER ==
[~2024-11-25] VITALS: Ht 175.3 cm; Wt 91.6 kg
[2024-11-25] MEDS ORDERED: Morphine 2mg Syringe 2 MG/ML SYR ONE (19:02)
[2024-11-25] MEDS ORDERED: SODIUM CHLORIDE 0.9% 1000ML 1,000 ML ONE (19:03)
[2024-11-25] MEDS: SODIUM CHLORIDE 0.9% 1000ML 1,000 ML IV STA ×2 (19:12→19:18)
[2024-11-25] MEDS: ONDANSETRON HCL INJ 2MG/ML 2ML 2 MG/ML VIAL IV STA (19:12)
[2024-11-25] MEDS: Morphine 4mg INJECTION 4 MG/ML INJ IV STA (19:12)
[2024-11-25 19:18] LABS: BASOPHILS % 0.6 % (0.0-1.0); EOSINOPHILS # (AUTO) 0.2 (0.0-0.4); EOSINOPHILS % 2.7 % (0.0-6.0); HEMATOCRIT 36.6 % (38.2-49.6); HEMOGLOBIN 12.7 g/dL (14.0-18.0); LYMPHOCYTES # (AUTO) 2.1 (1.0-3.2); LYMPHOCYTES % 32.9 % (18.0-39.1); MEAN CORPUSCULAR HEMOGLOBIN 30.8 pg (28-32); MEAN CORPUSCULAR HGB CONC 34.7 g/dL (31-35); MEAN CORPUSCULAR VOLUME 88.8 fL (81-99); MONOCYTES # (AUTO) 0.4 (0.2-0.8); MONOCYTES % 6.6 % (4.4-11.3); NEUTROPHILS # (AUTO) 3.5 (2.1-6.9); NEUTROPHILS % 56.7 % (38.7-80.0); PLATELET COUNT 289 x10e3/uL (140-360); RED BLOOD COUNT 4.12 x10e6/uL (4.3-5.7); RED CELL DISTRIBUTION WIDTH 12.5 % (11.7-14.4); WHITE BLOOD COUNT 6.23 x10e3/uL (4.8-10.8)
[2024-11-25 19:33] LABS: ALBUMIN 3.3 g/dL (3.5-5.0); ANION GAP 13.7 mmol/L (8-16); BILIRUBIN,TOTAL 0.3 mg/dL (0.2-1.2); CALCIUM 9.8 mg/dL (8.4-10.2); CREATININE, SERUM 0.88 mg/dL (0.72-1.25); POTASSIUM 3.7 mmol/L (3.5-5.1); TOTAL PROTEIN 6.6 g/dL (6.5-8.1)
[2024-11-25 19:39] LABS: TROPONIN I 0.013 ng/mL (0-0.300)
[2024-11-25] MEDS ORDERED: IOPAMIDOL 370 MG/ML 100 ML INFUS..BTL INJ ONE (19:43)
[2024-11-25] MEDS: ONDANSETRON HCL INJ 2MG/ML 2ML 2 MG/ML VIAL IV PRN (22:31)
[2024-11-25] MEDS: Morphine 2mg Syringe 2 MG/ML SYR IV PRN (22:32)
[2024-11-25 22:37] VITALS: PULSE 87; RESP 18; TEMP 98
[2024-11-25 23:22] VITALS: BP 139/91; PULSE 68; RESP 18; TEMP 97.7; O2SAT 98
[2024-11-25 23:38] VITALS: BP 139/91; PULSE 68; RESP 18; TEMP 97.7; O2SAT 98
[2024-11-26] VITALS (8 sets, daily range): BP systolic 120–154; BP diastolic 69–94; PULSE 69–88; RESP 17–21; TEMP 97.6–98; O2SAT 96–100
[2024-11-26] MEDS ORDERED: TRAMADOL HCL 50 MG TAB PO PRN
[2024-11-26] MEDS: LORAZEPAM 1 MG TAB PO PRN (00:57)
[2024-11-26] MEDS: SODIUM CHLORIDE 0.9% 1000ML 1,000 ML IV SCH (00:57)
[2024-11-26] MEDS: ARTIFICIAL TEARS (OPTH) 15 ML BTL OP SCH (06:00)
[2024-11-26] MEDS: METOCLOPRAMIDE HCL 10 MG/2ML VIAL IV SCH (06:08)
[2024-11-26 06:42] LABS: BASOPHILS # (AUTO) 0.1 (0.0-0.1); BASOPHILS % 0.7 % (0.0-1.0); EOSINOPHILS # (AUTO) 0.2 (0.0-0.4); EOSINOPHILS % 2.8 % (0.0-6.0); HEMATOCRIT 34.8 % (38.2-49.6); LYMPHOCYTES # (AUTO) 2.5 (1.0-3.2); LYMPHOCYTES % 37.1 % (18.0-39.1); MEAN CORPUSCULAR HEMOGLOBIN 31.1 pg (28-32); MEAN CORPUSCULAR HGB CONC 34.5 g/dL (31-35); MEAN CORPUSCULAR VOLUME 90.2 fL (81-99); MONOCYTES # (AUTO) 0.5 (0.2-0.8); MONOCYTES % 6.6 % (4.4-11.3); NEUTROPHILS # (AUTO) 3.6 (2.1-6.9); NEUTROPHILS % 52.7 % (38.7-80.0); PLATELET COUNT 262 x10e3/uL (140-360); RED BLOOD COUNT 3.86 x10e6/uL (4.3-5.7); RED CELL DISTRIBUTION WIDTH 12.9 % (11.7-14.4); WHITE BLOOD COUNT 6.84 x10e3/uL (4.8-10.8)
[2024-11-26] MEDS: LISINOPRIL 2.5 MG TAB PO SCH (07:14)
[2024-11-26] MEDS: FAMOTIDINE 20 MG TAB PO SCH (07:14)
[2024-11-26] MEDS: LEVETIRACETAM 500 MG TAB PO SCH (07:14)
[2024-11-26] MEDS: ALPRAZOLAM 1 MG TAB PO SCH (07:15)
[2024-11-26 07:23] LABS: ALBUMIN 2.9 g/dL (3.5-5.0); ANION GAP 12.7 mmol/L (8-16); BILIRUBIN,TOTAL 0.4 mg/dL (0.2-1.2); CALCIUM 8.6 mg/dL (8.4-10.2); CREATININE, SERUM 0.81 mg/dL (0.72-1.25); POTASSIUM 3.7 mmol/L (3.5-5.1); TOTAL PROTEIN 5.8 g/dL (6.5-8.1)
[2024-11-26 07:28] LABS: TROPONIN I 0.012 ng/mL (0-0.300)
[2024-11-26 08:36] LABS: CLARITY,URINE CLEAR (CLEAR); COLOR,URINE YELLOW (YELLOW); LEUKOCYTE ESTERASE ,URINE NEGATIVE (NEGATIVE); NITRITE,URINE NEGATIVE (NEGATIVE); PH,URINE 5.5 (5 - 7); PROTEIN,URINE DIPSTICK 2+ (NEGATIVE)
[2024-11-26 08:38] LABS: BILIRUBIN,URINE NEGATIVE (NEGATIVE); GLUCOSE, URINE 500 (NEGATIVE); KETONES,URINE NEGATIVE (NEGATIVE); URINE UROBILINOGEN 0.2 mg/dL (0.2 - 1)
[2024-11-26 08:59] LABS: BACTERIA,URINE FEW /HPF; EPITHELIAL CELLS,URINE FEW /LPF; WBC,URINE (MAN) 0-5 /HPF (0-5)
[2024-11-26] MEDS ORDERED: DEXTROSE 50% SYRINGE 50 ML IV PRN (09:15)
[2024-11-26] MEDS: INSULIN REGULAR, HUMAN 100 UNIT/1 ML SQ ONE (09:52)
[2024-11-26] MEDS: INSULIN REGULAR, HUMAN 100 UNIT/1 ML SQ SCH (11:41)
[2024-11-26] MEDS ORDERED: FENTANYL CITRATE/PF 100MCG/2 ML INJ ONE (13:59)
[2024-11-26] MEDS ORDERED: MIDAZOLAM HCL 2 MG/2 ML VIAL ONE (14:00)
[2024-11-26] MEDS ORDERED: PROPOFOL IV EMULSION 10 MG/ML 20 ML VIAL ONE (14:03)
[2024-11-26 14:15] LABS: TROPONIN I 0.01 ng/mL (0-0.300)
[2024-11-26] MEDS: TOBRAMYCIN/DEXAMETHASONE(OPTH) 3.5 GM TUBE OP SCH (15:20)
[2024-11-26] MEDS: DOCUSATE SODIUM 100 MG CAP PO SCH (17:00)
[2024-11-26] MEDS ORDERED: ACETAMINOPHEN 325 MG TAB PO PRN (17:00)
[2024-11-26] MEDS ORDERED: POLYETHYLENE GLYCOL 3350 17 GM PACK PO PRN (17:00)
[2024-11-26] MEDS ORDERED: HYDRALAZINE HCL 20 MG/ML VIAL IV PRN (17:00)
[2024-11-26] MEDS: TAMSULOSIN HCL 0.4 MG CAP PO SCH (21:29)
[2024-11-27] VITALS (8 sets, daily range): BP systolic 105–147; BP diastolic 63–94; PULSE 71–96; RESP 12–20; TEMP 97.9–98.1; O2SAT 98–100
[2024-11-27 05:21] LABS: BASOPHILS % 0.9 % (0.0-1.0); EOSINOPHILS # (AUTO) 0.2 (0.0-0.4); EOSINOPHILS % 4.1 % (0.0-6.0); HEMATOCRIT 32.7 % (38.2-49.6); HEMOGLOBIN 11.3 g/dL (14.0-18.0); LYMPHOCYTES # (AUTO) 1.9 (1.0-3.2); LYMPHOCYTES % 41.4 % (18.0-39.1); MEAN CORPUSCULAR HEMOGLOBIN 31.2 pg (28-32); MEAN CORPUSCULAR HGB CONC 34.6 g/dL (31-35); MEAN CORPUSCULAR VOLUME 90.3 fL (81-99); MONOCYTES # (AUTO) 0.3 (0.2-0.8); MONOCYTES % 6.7 % (4.4-11.3); NEUTROPHILS # (AUTO) 2.2 (2.1-6.9); NEUTROPHILS % 46.7 % (38.7-80.0); PLATELET COUNT 240 x10e3/uL (140-360); RED BLOOD COUNT 3.62 x10e6/uL (4.3-5.7); RED CELL DISTRIBUTION WIDTH 12.7 % (11.7-14.4); WHITE BLOOD COUNT 4.66 x10e3/uL (4.8-10.8)
[2024-11-27 05:43] LABS: ANION GAP 12.2 mmol/L (8-16); CREATININE, SERUM 0.75 mg/dL (0.72-1.25); MAGNESIUM 1.6 MG/DL (1.3-2.1); PHOSPHORUS 2.7 MG/DL (2.3-4.7)
[2024-11-27 05:45] LABS: POTASSIUM 3.2 mmol/L (3.5-5.1)
[2024-11-27 06:00] LABS: CHOL/HDL RATIO 4.9 (3.9-4.7)
[2024-11-27 06:23] LABS: FREE T4 (FREE THYROXINE) 1.1 ng/dL (0.8-1.8); THYROID STIMULATING HORMONE 0.757 uIU/mL (0.350-4.940)
[2024-11-27] MEDS ORDERED: NALOXONE HCL INJ 0.4 MG/ML AMP IV PRN (10:15)
[2024-11-27] MEDS: MAGNESIUM SULFATE 2GM/50ML 50 ML IV ONE (10:25)
[2024-11-27] MEDS: ACETAMINOPHEN/CODEINE 300MG - 30MG TAB PO PRN (11:56)
[2024-11-27] MEDS: POTASSIUM CHLORIDE 10MEQ EA PO ONE (12:44)
[2024-11-27] MEDS: ALPRAZOLAM 1 MG TAB PO SCH (16:52)
[2024-11-27] MEDS ORDERED: ACETAMINOPHEN325 M1 PO (18:23)
[2024-11-27] MEDS ORDERED: ONDANSETRON ODT4 MG PO (18:23)
[2024-11-27] MEDS ORDERED: CARAFATE1 GM/10 ML PO (18:23)
[2024-11-27] MEDS ORDERED: PROTONIX40 MG PO (20:24)
== END 2024-11-27 19:50 | disposition home or self-care (01) | DRG 381 ==
LOC: ER 18:50 → ERHOLD 21:23 → MED/SURG 22:45
PROVIDERS: ADMIT Internal Medicine; ATTEND Internal Medicine
PROC: 0DB98ZX Excision of Duodenum, Via Natural or Artificial Opening Endoscopic, Diagnostic (ICD-10-PCS; 2024-11-26)
PROC: 0D758ZZ Dilation of Esophagus, Via Natural or Artificial Opening Endoscopic (ICD-10-PCS; 2024-11-26)
PROC: 0DB58ZX Excision of Esophagus, Via Natural or Artificial Opening Endoscopic, Diagnostic (ICD-10-PCS; principal; 2024-11-26 15:00)
PROC: 0DB68ZX Excision of Stomach, Via Natural or Artificial Opening Endoscopic, Diagnostic (ICD-10-PCS; 2024-11-26 15:00)
PROC: 0DB78ZX Excision of Stomach, Pylorus, Via Natural or Artificial Opening Endoscopic, Diagnostic (ICD-10-PCS; 2024-11-26 15:00)
DX: K22.10 Ulcer of esophagus without bleeding (principal); I69.351 Hemiplegia and hemiparesis following cerebral infarction affecting right dominant side; K86.1 Other chronic pancreatitis; K22.2 Esophageal obstruction; E10.65 Type 1 diabetes mellitus with hyperglycemia; E10.40 Type 1 diabetes mellitus with diabetic neuropathy, unspecified; I10 Essential (primary) hypertension; J44.9 Chronic obstructive pulmonary disease, unspecified; I25.10 Atherosclerotic heart disease of native coronary artery without angina pectoris; F41.9 Anxiety disorder, unspecified; E78.5 Hyperlipidemia, unspecified; G40.909 Epilepsy, unspecified, not intractable, without status epilepticus; R13.10 Dysphagia, unspecified; F31.9 Bipolar disorder, unspecified; K21.00 Gastro-esophageal reflux disease with esophagitis, without bleeding; M06.9 Rheumatoid arthritis, unspecified; M79.7 Fibromyalgia; Z79.02 Long term (current) use of antithrombotics/antiplatelets; Z79.84 Long term (current) use of oral hypoglycemic drugs; Z90.49 Acquired absence of other specified parts of digestive tract; Z88.8 Allergy status to other drugs, medicaments and biological substances; Z87.891 Personal history of nicotine dependence; Z82.49 Family history of ischemic heart disease and other diseases of the circulatory system; Z83.3 Family history of diabetes mellitus
CPT/HCPCS: 36415; 43235; 43239; 43450; 71260; 74177; 80048; 80053; 80061; 81001; 82550; 82948; 83036; 83690; 83735; 84100; 84439; 84443; 84484; 85025; 87106; 87205; 88305; 88342; 93005; 94799; 99284; J2250; J2270; J2405; J2470; J2765; J3475; J7030; Q9967

== ENCOUNTER 2025-02-18 18:17 | Inpatient (IN) | payer OTHER ==
[2025-02-17 23:40] VITALS: BP 172/99; PULSE 90; RESP 18; TEMP 97.9
[~2025-02-18] VITALS: Ht 175.3 cm; Wt 96.2 kg
[~2025-02-18 18:17] MED LIST changes: +ACETAMINOPHEN325 M1 PO; +CARAFATE1 GM/10 ML PO; +HYDROCODON-ACE1 EA11 PO; +ONDANSETRON ODT4 MG PO; +PROTONIX40 MG PO
[2025-02-18] MEDS: Morphine 2mg Syringe 2 MG/ML SYR IV ONE ×2 (19:29→23:16)
[2025-02-18] MEDS: ONDANSETRON HCL INJ 2MG/ML 2ML 2 MG/ML VIAL IV STA (19:29)
[2025-02-18] MEDS: SODIUM CHLORIDE 0.9% 1000ML 1,000 ML IV ONE ×2 (19:30→23:15)
[2025-02-18] MEDS: KETOROLAC TROMETHAMINE 30 MG/ML VIAL IV STA (19:30)
[2025-02-18 19:34] LABS: BASOPHILS # (AUTO) 0.1 (0.0-0.1); BASOPHILS % 0.7 % (0.0-1.0); EOSINOPHILS # (AUTO) 0.2 (0.0-0.4); EOSINOPHILS % 2.8 % (0.0-6.0); HEMATOCRIT 35.8 % (38.2-49.6); HEMOGLOBIN 12.2 g/dL (14.0-18.0); LYMPHOCYTES # (AUTO) 2.4 (1.0-3.2); LYMPHOCYTES % 35.4 % (18.0-39.1); MEAN CORPUSCULAR HEMOGLOBIN 30.6 pg (28-32); MEAN CORPUSCULAR HGB CONC 34.1 g/dL (31-35); MEAN CORPUSCULAR VOLUME 89.7 fL (81-99); MONOCYTES # (AUTO) 0.5 (0.2-0.8); MONOCYTES % 7.7 % (4.4-11.3); NEUTROPHILS # (AUTO) 3.6 (2.1-6.9); NEUTROPHILS % 53.3 % (38.7-80.0); PLATELET COUNT 240 x10e3/uL (140-360); RED BLOOD COUNT 3.99 x10e6/uL (4.3-5.7); RED CELL DISTRIBUTION WIDTH 12.6 % (11.7-14.4); WHITE BLOOD COUNT 6.73 x10e3/uL (4.8-10.8)
[2025-02-18 19:58] LABS: ALBUMIN 3.3 g/dL (3.5-5.0); ALBUMIN/GLOBULIN RATIO 0.9 (0.8-2.0); ANION GAP 13.8 mmol/L (8-16); BILIRUBIN,TOTAL 0.3 mg/dL (0.2-1.2); CALCIUM 8.6 mg/dL (8.4-10.2); CREATININE, SERUM 1.43 mg/dL (0.72-1.25); POTASSIUM 3.8 mmol/L (3.5-5.1); TOTAL PROTEIN 6.9 g/dL (6.5-8.1)
[2025-02-18] MEDS ORDERED: IOPAMIDOL 370 MG/ML 100 ML INFUS..BTL INJ ONE (20:11)
[2025-02-18 23:09] LABS: BILIRUBIN,URINE NEGATIVE (NEGATIVE); CLARITY,URINE CLEAR (CLEAR); COLOR,URINE YELLOW (YELLOW); GLUCOSE, URINE 500 (NEGATIVE); KETONES,URINE NEGATIVE (NEGATIVE); LEUKOCYTE ESTERASE ,URINE NEGATIVE (NEGATIVE); NITRITE,URINE NEGATIVE (NEGATIVE); PH,URINE 5.5 (5 - 7); PROTEIN,URINE DIPSTICK 2+ (NEGATIVE); URINE UROBILINOGEN 0.2 mg/dL (0.2 - 1)
[2025-02-18 23:10] LABS: CANNABINOIDS SCREEN,URINE POSITIVE (NEGATIVE); COCAINE SCREEN,URINE POSITIVE (NEGATIVE); OPIATES SCREEN,URINE POSITIVE (NEGATIVE)
[2025-02-18 23:11] LABS: AMPHETAMINES SCREEN,URINE NEGATIVE (NEGATIVE); BENZODIAZEPINES SCREEN,URINE NEGATIVE (NEGATIVE); METHADONE SCREEN, URINE NEGATIVE (NEGATIVE); PHENCYCLIDINE SCREEN,URINE NEGATIVE (NEGATIVE)
[2025-02-18 23:19] LABS: BACTERIA,URINE MODERATE /HPF; EPITHELIAL CELLS,URINE FEW /LPF; RBC,URINE >50 /HPF (0-5); SPERM,URINE PRESENT
[2025-02-18 23:41] VITALS: PULSE 102; RESP 17; TEMP 98.8
[2025-02-19] VITALS (9 sets, daily range): BP systolic 98–172; BP diastolic 56–99; PULSE 71–94; RESP 18–20; TEMP 97.7–98.4; O2SAT 98–100
[2025-02-19] MEDS: SODIUM CHLORIDE 0.9% 1000ML 1,000 ML IV SCH (06:45)
[2025-02-19] MEDS: ONDANSETRON HCL INJ 2MG/ML 2ML 2 MG/ML VIAL IV PRN (08:23)
[2025-02-19] MEDS: Morphine 4mg INJECTION 4 MG/ML INJ IV PRN (08:23)
[2025-02-19 08:31] LABS: BASOPHILS # (AUTO) 0.1 (0.0-0.1); BASOPHILS % 0.9 % (0.0-1.0); EOSINOPHILS # (AUTO) 0.3 (0.0-0.4); EOSINOPHILS % 5.8 % (0.0-6.0); HEMATOCRIT 33.8 % (38.2-49.6); HEMOGLOBIN 11.3 g/dL (14.0-18.0); LYMPHOCYTES # (AUTO) 2.2 (1.0-3.2); LYMPHOCYTES % 37.9 % (18.0-39.1); MEAN CORPUSCULAR HEMOGLOBIN 30.5 pg (28-32); MEAN CORPUSCULAR HGB CONC 33.4 g/dL (31-35); MEAN CORPUSCULAR VOLUME 91.4 fL (81-99); MONOCYTES # (AUTO) 0.5 (0.2-0.8); MONOCYTES % 8.1 % (4.4-11.3); NEUTROPHILS # (AUTO) 2.7 (2.1-6.9); NEUTROPHILS % 47.1 % (38.7-80.0); PLATELET COUNT 213 x10e3/uL (140-360); RED CELL DISTRIBUTION WIDTH 12.7 % (11.7-14.4); WHITE BLOOD COUNT 5.68 x10e3/uL (4.8-10.8)
[2025-02-19 09:04] LABS: ALBUMIN/GLOBULIN RATIO 0.9 (0.8-2.0); ANION GAP 12.3 mmol/L (8-16); BILIRUBIN,TOTAL 0.3 mg/dL (0.2-1.2); CALCIUM 8.1 mg/dL (8.4-10.2); CREATININE, SERUM 1.1 mg/dL (0.72-1.25); POTASSIUM 4.3 mmol/L (3.5-5.1); TOTAL PROTEIN 6.2 g/dL (6.5-8.1)
[2025-02-19] MEDS ORDERED: ALBUTEROL/IPRATROPIUM 3 ML NEB NEB PRN (09:30)
[2025-02-19] MEDS ORDERED: ACETAMINOPHEN 325 MG TAB PO PRN (09:30)
[2025-02-19] MEDS ORDERED: TRAMADOL HCL 50 MG TAB PO PRN (09:30)
[2025-02-19] MEDS ORDERED: SIMETHICONE 80 MG CHEW PO PRN (09:30)
[2025-02-19] MEDS ORDERED: MELATONIN 3 MG TAB PO PRN (09:30)
[2025-02-19] MEDS ORDERED: DOCUSATE SODIUM 100 MG CAP PO PRN (09:30)
[2025-02-19] MEDS: ALPRAZOLAM 0.25 MG TAB PO SCH (10:00)
[2025-02-19] MEDS: INSULIN GLARGINE 100 UNITS/ML VIAL SQ SCH (10:00)
[2025-02-19] MEDS: METOPROLOL TARTRATE 25 MG TAB PO SCH (10:01)
[2025-02-19 10:29] LABS: CHOL/HDL RATIO 4.8 (3.9-4.7)
[2025-02-19] MEDS: INSULIN LISPRO 100 UNIT/1 ML 3ML VIAL SQ SCH (12:35)
[2025-02-19] MEDS: INSULIN REGULAR, HUMAN 100 UNIT/1 ML SQ SCH (12:38)
[2025-02-19] MEDS: SUCRALFATE 1 GM/10 ML SUSP PO SCH (12:39)
[2025-02-19] MEDS: TIZANIDINE HCL 4 MG TAB PO SCH (14:44)
[2025-02-19] MEDS: GABAPENTIN 300 MG CAP PO SCH (14:44)
[2025-02-19] MEDS: TOBRAMYCIN/DEXAMETHASONE(OPTH) 3.5 GM TUBE OP SCH (14:50)
[2025-02-19] MEDS: PANTOPRAZOLE SODIUM 40 MG SUSPDR.PKT PO SCH (17:00)
[2025-02-19] MEDS: LEVETIRACETAM 500 MG TAB PO SCH (17:10)
[2025-02-19] MEDS: ENOXAPARIN SOD INJ 40 MG/0.4 ML SYR SC SCH (17:10)
[2025-02-19] MEDS: ATORVASTATIN 20 MG TAB PO SCH (21:13)
[2025-02-19] MEDS: NORTRIPTYLINE HCL 25 MG CAP PO SCH (21:13)
[2025-02-19] MEDS: TAMSULOSIN HCL 0.4 MG CAP PO SCH (21:15)
[2025-02-20] VITALS (8 sets, daily range): BP systolic 116–157; BP diastolic 79–89; PULSE 70–88; RESP 16–19; TEMP 97.4–98.2; O2SAT 97–100
[2025-02-20 06:45] LABS: BASOPHILS % 0.6 % (0.0-1.0); EOSINOPHILS # (AUTO) 0.3 (0.0-0.4); EOSINOPHILS % 5.7 % (0.0-6.0); HEMATOCRIT 31.1 % (38.2-49.6); HEMOGLOBIN 10.3 g/dL (14.0-18.0); LYMPHOCYTES # (AUTO) 2.2 (1.0-3.2); LYMPHOCYTES % 45.7 % (18.0-39.1); MEAN CORPUSCULAR HEMOGLOBIN 30.3 pg (28-32); MEAN CORPUSCULAR HGB CONC 33.1 g/dL (31-35); MEAN CORPUSCULAR VOLUME 91.5 fL (81-99); MONOCYTES # (AUTO) 0.4 (0.2-0.8); MONOCYTES % 7.6 % (4.4-11.3); NEUTROPHILS # (AUTO) 1.9 (2.1-6.9); NEUTROPHILS % 40.2 % (38.7-80.0); PLATELET COUNT 198 x10e3/uL (140-360); RED CELL DISTRIBUTION WIDTH 12.6 % (11.7-14.4); WHITE BLOOD COUNT 4.73 x10e3/uL (4.8-10.8)
[2025-02-20 07:24] LABS: ANION GAP 11.8 mmol/L (8-16); CALCIUM 7.9 mg/dL (8.4-10.2); CREATININE, SERUM 0.94 mg/dL (0.72-1.25); POTASSIUM 3.8 mmol/L (3.5-5.1)
[2025-02-20] MEDS: FENOFIBRATE 145 MG TAB PO SCH (10:16)
[2025-02-20] MEDS: CLOPIDOGREL BISULFATE 75 MG TAB PO SCH (10:16)
[2025-02-20] MEDS: INSULIN GLARGINE 100 UNITS/ML VIAL SQ SCH (10:20)
[2025-02-20] MEDS: INSULIN LISPRO 100 UNIT/1 ML 3ML VIAL SQ SCH ×2 (10:22→22:26)
[2025-02-20] MEDS: DEXTROSE 50% SYRINGE 50 ML IV PRN (14:12)
[2025-02-21] VITALS (9 sets, daily range): BP systolic 107–167; BP diastolic 64–99; PULSE 75–112; RESP 16–20; TEMP 97–97.8; O2SAT 98–100
[2025-02-21 06:28] LABS: BASOPHILS # (AUTO) 0.1 (0.0-0.1); EOSINOPHILS # (AUTO) 0.3 (0.0-0.4); EOSINOPHILS % 6.8 % (0.0-6.0); HEMATOCRIT 34.6 % (38.2-49.6); HEMOGLOBIN 11.6 g/dL (14.0-18.0); LYMPHOCYTES # (AUTO) 1.6 (1.0-3.2); LYMPHOCYTES % 32.9 % (18.0-39.1); MEAN CORPUSCULAR HEMOGLOBIN 30.7 pg (28-32); MEAN CORPUSCULAR HGB CONC 33.5 g/dL (31-35); MEAN CORPUSCULAR VOLUME 91.5 fL (81-99); MONOCYTES # (AUTO) 0.3 (0.2-0.8); MONOCYTES % 6.8 % (4.4-11.3); NEUTROPHILS # (AUTO) 2.6 (2.1-6.9); NEUTROPHILS % 52.3 % (38.7-80.0); PLATELET COUNT 205 x10e3/uL (140-360); RED BLOOD COUNT 3.78 x10e6/uL (4.3-5.7); RED CELL DISTRIBUTION WIDTH 12.4 % (11.7-14.4); WHITE BLOOD COUNT 4.98 x10e3/uL (4.8-10.8)
[2025-02-21 07:03] LABS: ANION GAP 11.1 mmol/L (8-16); CALCIUM 8.5 mg/dL (8.4-10.2); CREATININE, SERUM 0.99 mg/dL (0.72-1.25); POTASSIUM 4.1 mmol/L (3.5-5.1)
[2025-02-21] MEDS ORDERED: INSULIN GLARGINE 100 UNITS/ML VIAL SQ SCH (09:00)
[2025-02-21] MEDS: INSULIN GLARGINE 100 UNITS/ML VIAL SQ SCH (13:00)
[2025-02-21] MEDS: METOPROLOL TARTRATE INJ 1 MG/ML VIAL IV PRN (13:03)
[2025-02-21] MEDS ORDERED: LOPRESSOR25 MG PO (20:03)
[2025-02-21] MEDS ORDERED: CEPHALEXIN500 MG PO (20:04)
== END 2025-02-21 21:45 | disposition home or self-care (01) | DRG 690 ==
LOC: ER 18:33 → ERHOLD 23:24 → MED/SURG3 02-19 00:18 → OBSVTOIN 02-20 15:34
PROVIDERS: ADMIT Internal Medicine; ATTEND Internal Medicine
DX: N39.0 Urinary tract infection, site not specified (principal); E87.1 Hypo-osmolality and hyponatremia; N17.9 Acute kidney failure, unspecified; N10 Acute pyelonephritis; N20.0 Calculus of kidney; J44.9 Chronic obstructive pulmonary disease, unspecified; E11.9 Type 2 diabetes mellitus without complications; K21.9 Gastro-esophageal reflux disease without esophagitis; E78.5 Hyperlipidemia, unspecified; N40.0 Benign prostatic hyperplasia without lower urinary tract symptoms; F31.9 Bipolar disorder, unspecified; F11.10 Opioid abuse, uncomplicated; F15.10 Other stimulant abuse, uncomplicated; F14.10 Cocaine abuse, uncomplicated; G40.909 Epilepsy, unspecified, not intractable, without status epilepticus; Z79.4 Long term (current) use of insulin; Z79.02 Long term (current) use of antithrombotics/antiplatelets; Z86.73 Personal history of transient ischemic attack (TIA), and cerebral infarction without residual deficits; Z90.49 Acquired absence of other specified parts of digestive tract; Z88.8 Allergy status to other drugs, medicaments and biological substances; Z87.891 Personal history of nicotine dependence
CPT/HCPCS: 36415; 74177; 80048; 80053; 80061; 80307; 81001; 82948; 83036; 83690; 85025; 87086; 93005; 94799; 99284; G0378; J0696; J1650; J1815; J1885; J2270; J2405; J7030; J7799; Q9967

== ENCOUNTER 2025-04-10 02:07 | Emergency (ER) | payer OTHER ==
[~2025-04-10] VITALS: Ht 167.6 cm; Wt 96.2 kg
[~2025-04-10 02:07] MED LIST changes: +CEPHALEXIN500 MG PO; +LOPRESSOR25 MG PO
[2025-04-10 02:14] VITALS: TEMP 98.4
[2025-04-10 03:24] LABS: BASOPHILS % 1.0 % (0.0-1.0); EOSINOPHILS % 3.8 % (0.0-6.0); LYMPHOCYTES % 36.7 % (18.0-39.1); MONOCYTES % 10.1 % (4.4-11.3); NEUTROPHILS % 48.1 % (38.7-80.0); RED CELL DISTRIBUTION WIDTH 12.7 % (11.7-14.4)
[2025-04-10 03:28] LABS: LEUKOCYTE ESTERASE ,URINE NEGATIVE (NEGATIVE); PROTEIN,URINE DIPSTICK >=300 (NEGATIVE); URINE UROBILINOGEN 0.2 mg/dL (0.2 - 1)
[2025-04-10 03:34] LABS: AMPHETAMINES SCREEN,URINE NEGATIVE (NEGATIVE); CANNABINOIDS SCREEN,URINE POSITIVE (NEGATIVE); COCAINE SCREEN,URINE NEGATIVE (NEGATIVE); METHADONE SCREEN, URINE NEGATIVE (NEGATIVE); OPIATES SCREEN,URINE NEGATIVE (NEGATIVE)
[2025-04-10 03:45] LABS: EPITHELIAL CELLS,URINE FEW /LPF; WBC,URINE (MAN) 0-5 /HPF (0-5)
[2025-04-10 03:50] LABS: EST GLOMERULAR FILTRATION RATE 79.0 ML/MIN (>=60)
[2025-04-10 03:56] LABS: ETHANOL < 10.0 mg/dL (0.0-10.0)
[2025-04-10] MEDS: DIPHENHYDRAMINE HCL INJ 50 MG/ML VIAL IV ONE (04:36)
[2025-04-10] MEDS: ONDANSETRON HCL INJ 2MG/ML 2ML 2 MG/ML VIAL IV STA (04:36)
[2025-04-10] MEDS: METOCLOPRAMIDE HCL 10 MG/2ML VIAL IV ONE (04:36)
[2025-04-10] MEDS: KETOROLAC TROMETHAMINE 30 MG/ML VIAL IV STA (04:37)
[2025-04-10 04:45] VITALS: PULSE 71; RESP 15; O2SAT 100
[2025-04-10] MEDS ORDERED: ONDANSETRON ODT4 MG SL (05:18)
== END 2025-04-10 05:39 | disposition home or self-care (01) ==
LOC: ER 04:08
DX: R10.12 Left upper quadrant pain (principal); R11.0 Nausea; R42 Dizziness and giddiness; E11.65 Type 2 diabetes mellitus with hyperglycemia; E11.40 Type 2 diabetes mellitus with diabetic neuropathy, unspecified; G40.909 Epilepsy, unspecified, not intractable, without status epilepticus; M06.9 Rheumatoid arthritis, unspecified; R94.31 Abnormal electrocardiogram [ECG] [EKG]; Z86.73 Personal history of transient ischemic attack (TIA), and cerebral infarction without residual deficits; F17.210 Nicotine dependence, cigarettes, uncomplicated
CPT/HCPCS: 36415; 71045; 80053; 80307; 80320; 81001; 82550; 82948; 83690; 84484; 85025; 93005; 99284; J1200; J1885; J2405; J2470; J2765

== ENCOUNTER 2025-04-16 18:43 | Emergency (ER) | payer OTHER ==
[~2025-04-16] VITALS: Ht 167.6 cm; Wt 96.2 kg
[~2025-04-16 18:43] MED LIST changes: +ONDANSETRON ODT4 MG SL
[2025-04-16 18:45] VITALS: TEMP 99.1
[2025-04-16 19:14] LABS: BASOPHILS % 0.8 % (0.0-1.0); EOSINOPHILS % 3.1 % (0.0-6.0); LYMPHOCYTES % 31.3 % (18.0-39.1); MONOCYTES % 7.4 % (4.4-11.3); NEUTROPHILS % 57.2 % (38.7-80.0); RED CELL DISTRIBUTION WIDTH 12.6 % (11.7-14.4)
[2025-04-16] MEDS: METOCLOPRAMIDE HCL 10 MG/2ML VIAL IV ONE (19:14)
[2025-04-16] MEDS: LACTATED RINGER'S 1,000 ML INJ ONE ×2 (19:14→20:10)
[2025-04-16 19:29] LABS: CORONAVIRUS COVID-19 AG NEGATIVE (NEGATIVE)
[2025-04-16 19:37] LABS: EST GLOMERULAR FILTRATION RATE 50.0 ML/MIN (>=60)
[2025-04-16 20:00] VITALS: PULSE 78; RESP 18
[2025-04-16] MEDS: INSULIN REGULAR, HUMAN 100 UNIT/1 ML IV ONE (20:12)
[2025-04-16 21:19] LABS: AMPHETAMINES SCREEN,URINE NEGATIVE (NEGATIVE); CANNABINOIDS SCREEN,URINE POSITIVE (NEGATIVE); COCAINE SCREEN,URINE NEGATIVE (NEGATIVE); LEUKOCYTE ESTERASE ,URINE NEGATIVE (NEGATIVE); METHADONE SCREEN, URINE NEGATIVE (NEGATIVE); OPIATES SCREEN,URINE NEGATIVE (NEGATIVE); PROTEIN,URINE DIPSTICK 1+ (NEGATIVE); URINE UROBILINOGEN 0.2 mg/dL (0.2 - 1)
[2025-04-16 21:33] LABS: WBC,URINE (MAN) 0-5 /HPF (0-5)
[2025-04-16 21:34] LABS: EPITHELIAL CELLS,URINE FEW /LPF
[2025-04-16 21:55] VITALS: BP 139/78; PULSE 79; RESP 18; TEMP 98.3; O2SAT 99
== END 2025-04-16 21:57 | disposition home or self-care (01) ==
LOC: ER 18:46
DX: R42 Dizziness and giddiness (principal); E11.65 Type 2 diabetes mellitus with hyperglycemia; R07.89 Other chest pain; G40.909 Epilepsy, unspecified, not intractable, without status epilepticus; M06.9 Rheumatoid arthritis, unspecified; Z11.52 Encounter for screening for COVID-19; R94.31 Abnormal electrocardiogram [ECG] [EKG]; I69.351 Hemiplegia and hemiparesis following cerebral infarction affecting right dominant side
CPT/HCPCS: 36415; 71046; 80053; 80307; 80320; 81001; 82948; 83880; 84484; 85025; 87426; 93005; 99284; J2765; J7121

== ENCOUNTER 2025-04-17 20:31 | Emergency (ER) | payer OTHER ==
[~2025-04-17] VITALS: Ht 167.6 cm; Wt 96.2 kg
[2025-04-17] MEDS ORDERED: SODIUM CHLORIDE FLUSH 10 ML SYR IV PRN (21:45)
[2025-04-17 22:19] LABS: BASOPHILS % 0.8 % (0.0-1.0); EOSINOPHILS % 4.0 % (0.0-6.0); LYMPHOCYTES % 34.8 % (18.0-39.1); MONOCYTES % 8.6 % (4.4-11.3); NEUTROPHILS % 51.7 % (38.7-80.0); RED CELL DISTRIBUTION WIDTH 12.7 % (11.7-14.4)
[2025-04-17] MEDS ORDERED: METOCLOPRAMIDE HCL 10 MG TAB PO ONE (22:45)
[2025-04-17 22:49] LABS: EST GLOMERULAR FILTRATION RATE 77.0 ML/MIN (>=60)
[2025-04-17] MEDS ORDERED: METOCLOPRAMIDE HCL 10 MG/2ML VIAL ONE (23:21)
[2025-04-17] MEDS: ONDANSETRON HCL INJ 2MG/ML 2ML 2 MG/ML VIAL IV STA (23:31)
[2025-04-17] MEDS: SODIUM CHLORIDE 0.9% 1000ML 1,000 ML IV ONE (23:31)
[2025-04-17] MEDS: METOCLOPRAMIDE HCL 10 MG/2ML VIAL IV ONE (23:31)
[2025-04-17] MEDS: KETOROLAC TROMETHAMINE 30 MG/ML VIAL IV STA (23:31)
[2025-04-18 00:47] VITALS: PULSE 73; RESP 16; TEMP 98.3; O2SAT 100
[2025-04-18] MEDS ORDERED: CARAFATE1 GM PO (00:48)
[2025-04-18] MEDS ORDERED: PANTOPRAZOLE SO40 MG PO (00:48)
== END 2025-04-18 01:05 | disposition home or self-care (01) ==
LOC: ER 22:36
DX: R10.13 Epigastric pain (principal); E11.65 Type 2 diabetes mellitus with hyperglycemia; E11.40 Type 2 diabetes mellitus with diabetic neuropathy, unspecified; G40.909 Epilepsy, unspecified, not intractable, without status epilepticus; M79.7 Fibromyalgia; Z86.73 Personal history of transient ischemic attack (TIA), and cerebral infarction without residual deficits
CPT/HCPCS: 36415; 71045; 80053; 80320; 83690; 84484; 85025; 93005; 99284; J1885; J2405; J2470; J2765; J7030